=== PATIENT | female | born 1930 | race Caucasian/White ===

== ENCOUNTER 2018-03-17 19:36 | Emergency (ER) | payer OTHER ==
[2018-03-17 20:38] LABS: ALT/SGPT 27 U/L (12-78); AST/SGOT 24 U/L (15-37); Albumin 3.7 g/dL (3.4-5.0); Alkaline Phosphatase 74 U/L (45-117); Amylase Level 35 U/L (25-115); BUN Blood Urea Nitrogen 25 mg/dL (7-18); Bicarbonate 29 mmol/L (21-32); Bilirubin Direct < 0.1 mg/dL (0-0.2); Bilirubin Total 0.2 mg/dL (0.2-1.0); CKMB Creatine Kinase MB < 1.0 ng/mL (0.3-3.6); Creatine Phosphokinase 52 U/L (26-192); Glucose Level 155 mg/dL (74-106); Lipase 74 U/L (73-393); Magnesium 2.1 mg/dL (1.8-2.4); Potassium 4.4 mmol/L (3.5-5.1); Protein, Total 7.6 g/dL (6.4-8.2); Sodium Level 141 mmol/L (136-145)
[2018-03-17 20:44] LABS: Absolute Lymphocytes (CBC) 2.6 K/uL (0.7-4.9); Absolute Monocytes 0.9 K/uL (0.1-1.3); Absolute Neutrophil 5.5 K/uL (1.8-8.0); Basophils % 0.8 % (0-1.3); Eosinophils % 4.4 % (0-4.4); Hematocrit 43.1 % (36.0-45.0); Lymphocytes % 27.7 % (15.3-44.8); MCH 31.7 pg (27.0-35.0); MCV 94.7 fL (80-100); MPV 8.2 fL (7.6-11.3); Monocytes % 9.7 % (3.3-12.3); RBC Red Blood Cell Count 4.55 M/uL (3.86-4.86)
[2018-03-17 20:47] LABS: Protime INR 0.97
--- NOTE | 2018-03-17 21:05 | RAD REPORT ---
EXAM DESCRIPTION: CT - Ct Stroke Brain Wo Cont - 03/17/2018 8:06 pm CLINICAL HISTORY: Transient alteration of awareness CLINICAL HISTORY: CT head March 2012 TECHNIQUE: Axial 5 millimeter thick images of the head were obtained without IV contrast. All CT scans are performed using dose optimization technique as appropriate and may include automated exposure control or mA/KV adjustment according to patient size. FINDINGS: No intracranial hemorrhage, mass, or cerebral edema. No acute cortical based infarction. N o cortical edema or sulcal effacement. Moderate atrophy and chronic ischemic changes are present. The re has been mild progression since 2011. No extra-axial fluid collections. Rubio matter-white matter differentiation is preserved. Ventricular size is in proportion to volume loss. Arterial and physiologic calcifications are present . Mastoid air cells are clear. Chronic left maxillary sinusitis is present with complete opacification. This is new from 2011. Findings telephoned to the Dr. Davila 8:17 p.m. IMPRESSION: No hemorrhage, mass or acute intracranial finding. Moderate atrophy and chronic ischemic change showing mild progression since 2011. Chronic ischemic changes can mask nonhemorrhagic acute infarction. MR brain followup can be obtained if there is ongoing concern for acute ischemia. Left maxillary chronic sinusitis
--- NOTE | 2018-03-17 21:06 | RAD REPORT ---
EXAM DESCRIPTION: RAD - Chest Single View - 03/17/2018 8:14 pm CLINICAL HISTORY: Stroke protocol chest film, altered mental status COMPARISON: November 2014 TECHNIQUE: AP portable chest image was obtained 2001 hours . FINDINGS: Lung volumes are low. Right hemidiaphragm elevation is present. Vasculature within normal limits. No focal lung parenchymal process seen. Heart and vasculature are normal. No measurable pleur al effusion and no pneumothorax. No gross bony abnormality seen. No acute aortic findings suspected. IMPRESSION: No acute cardiopulmonary process. No significant change from comparison.
[2018-03-17] MEDS ORDERED: NA CHLORIDE 0.9% 500 ML ONE (22:20)
[2018-03-17 23:56] LABS: Urine Blood NEGATIVE (NEG); Urine Glucose NEGATIVE (NEG); Urine Protein NEGATIVE (NEG); Urine pH 5.5 (5.0-7.0)
[2018-03-17 23:59] LABS: Urine Bacteria <20 /HPF (<20); Urine Culture Reflex Order REFLEXED; Urine RBC NONE SEEN /HPF (NONE SEEN)
[2018-03-18] LABS: Urine Mucus LIGHT /HPF (NONE SEEN)
--- NOTE | 2018-03-18 00:04 | EDPHYS ---
Physician Documentation [facility] Name: Crystal Padron Age: 87 yrs Sex: Female : 1930 Arrival Date: 03/17/2018 Time: 19:37 Bed 4 Private MD: ED Physician Daniel Davila HPI: 03/17 21:28 This 87 yrs old Female presents to ER via Wheelchair with complaints of wa Probable Seizure. 21:28 The patient presents with confusion, disorientation, trouble concentrating, per family, wa pt became suddenly forgetful and disoriented. could not remember her address or names of people. lasted about 30 min. resolved in route to the ER. h/o same 6 months ago. evaluated by a neurologist. dx'd with atypical Seizure. pt in ED denies complaints. Denies VICENTE, dizziness, chest pain or SOB. Does not remember details of what happened. Family denies noting seizure activity. They however describe pt pulling on her lower lip with her hands when during episode. did not observe any facial or extremity weakness during episode. Onset: The symptoms/episode began/occurred just prior to arrival. Possible causes: unknown. Associated signs and symptoms: Pertinent positives: confusion, Pertinent negatives: agitation, blurred vision, chest pain, diaphoresis, dizziness, headache, lightheadedness, nausea, numbness, palpitations, seizure, shortness of breath, tingling, vomiting, weakness. Current symptoms: In the emergency department the patient's symptoms have resolved, the patient is alert and fully oriented, has normal speech, has normal responsiveness, has no confusion. Patient's baseline: Neuro: alert and fully oriented, Motor: no deficits, Ambulation: walks without assistance, Speech: normal. The patient has experienced a previous episode, approximately 6 months ago. The patient has not recently seen a physician. Historical: - Allergies: 19:51 tolmetin; ea - Home Meds: 20:28 alphagan [Active]; levothyroxine 112 mcg tab 1 tab once daily [Active]; diclofenac tl2 sodium 50 mg oral TbEC 1 tab [Active]; metoprolol tartrate 25 mg Oral tab 1 tab once daily [Active]; montelukast 10 mg oral tab 1 tab once daily [Active]; duloxetine 30 mg oral cpDR 1 cap once daily [Active]; amitriptyline 10 mg Oral tab 1 tab [Active]; aspirin 81 mg Oral TbEC 1 tab once daily [Active]; Advair Diskus 250-50 mcg/dose Inhl dsdv 1 puff 2 times per day [Active]; tramadol 50 mg Oral tab 1 tab every 4-6 hours [Active]; vitamin B complex oral cap [Active]; melatonin 3 mg Oral tab nightly [Active]; albuterol sulfate 2.5 mg /3 mL (0.083 %) Inhl nebu 3 mL every 8 hours [Active]; - PMHx: 20:30 Hypothyroidism; Hypertension; Seizures; tl2 - PSHx: 19:51 Cholecystectomy; Tonsillectomy; Appendectomy; Hysterectomy; Disc surgery; bilateral ea knee replacement; left hip replacement; - Immunization history:: Adult Immunizations up to date, Adult Immunizations up to date. - Social history:: Smoking status: Patient/guardian denies using tobacco, Smoking status: Patient/guardian denies using tobacco. - Ebola Screening: : Patient negative for fever greater than or equal to 101.5 degrees Fahrenheit, and additional compatible Ebola Virus Disease symptoms Patient denies exposure to infectious person Patient denies travel to an Ebola-affected area in the 21 days before illness onset No symptoms or risks identified at this time No symptoms or risks identified at this time. - Family history:: not pertinent. - Hospitalizations: : No recent hospitalization is reported. ROS: 21:34 Constitutional: Negative for fever, chills, and weight loss, Eyes: Negative for injury, wa pain, redness, and discharge, ENT: Negative for injury, pain, and discharge, Neck: Negative for injury, pain, and swelling, Cardiovascular: Negative for chest pain, palpitations, and edema, Respiratory: Negative for shortness of breath, cough, wheezing, and pleuritic chest pain, Abdomen/GI: Negative for abdominal pain, nausea, vomiting, diarrhea, and constipation, Back: Negative for injury and pain, : Negative for injury, bleeding, discharge, and swelling, MS/Extremity: Negative for injury and deformity, Skin: Negative for injury, rash, and discoloration, Psych: Negative for depression, anxiety, suicide ideation, homicidal ideation, and hallucinations. 21:34 Neuro: Positive for altered mental status, Negative for dizziness, gait disturbance, headache, loss of consciousness, seizure activity, speech changes, syncope. 21:34 All other systems are negative. Exam: 21:34 Constitutional: This is a well developed, well nourished patient who is awake, alert, wa and in no acute distress. Head/Face: Normocephalic, atraumatic. Eyes: Pupils equal round and reactive to light, extra-ocular motions intact. Lids and lashes normal. Conjunctiva and sclera are non-icteric and not injected. Cornea within normal limits. Periorbital areas with no swelling, redness, or edema. ENT: Nares patent. No nasal discharge, no septal abnormalities noted. Tympanic membranes are normal and external auditory canals are clear. Oropharynx with no redness, swelling, or masses, exudates, or evidence of obstruction, uvula midline. Mucous membranes moist. Neck: Trachea midline, no thyromegaly or masses palpated, and no cervical lymphadenopathy. Supple, full range of motion without nuchal rigidity, or vertebral point tenderness. No Meningismus. Cardiovascular: Regular rate and rhythm with a normal S1 and S2. No gallops, murmurs, or rubs. Normal PMI, no JVD. No pulse deficits. Respiratory: Lungs have equal breath sounds bilaterally, clear to auscultation and percussion. No rales, rhonchi or wheezes noted. No increased work of breathing, no retractions or nasal flaring. Abdomen/GI: Soft, non-tender, with normal bowel sounds. No distension or tympany. No guarding or rebound. No evidence of tenderness throughout. Back: No spinal tenderness. No costovertebral tenderness. Full range of motion. Skin: Warm, dry with normal turgor. Normal color with no rashes, no lesions, and no evidence of cellulitis. MS/ Extremity: Pulses equal, no cyanosis. Neurovascular intact. Full, normal range of motion. Psych: Awake, alert, with orientation to person, place and time. Behavior, mood, and affect are within normal limits. 21:34 Neuro: Orientation: is normal, Mentation: is normal, Memory: is normal, Cranial nerves: grossly normal, Cerebellar function: is grossly normal, Motor: is normal, Sensation: is normal. Vital Signs: 19:51 BP 156 / 86; Pulse 85; Resp 18; Pulse Ox 95% on R/A; Weight 90.72 kg; Height 5 ft. 4 bp in. (162.56 cm); 20:51 BP 103 / 84; Pulse 73; Resp 20; Pulse Ox 94% on R/A; tl2 21:37 BP 122 / 68; Pulse 70; Resp 18; Pulse Ox 95% on R/A; tl2 22:38 BP 140 / 70; Pulse 64; Resp 18; Pulse Ox 96% on R/A; tl2 23:17 BP 138 / 90; Pulse 67; Resp 18; Pulse Ox 95% on R/A; tl2 19:51 Body Mass Index 34.33 (90.72 kg, 162.56 cm) bp NIH Stroke Scale Scores: 19:46 NIHSS Score: 0 bp Olga Coma Score: 19:49 Eye Response: spontaneous(4). Verbal Response: oriented(5). Motor Response: obeys bp commands(6). Total: 15. MDM: 20:09 Patient medically screened. fl 21:35 Differential Diagnosis: s/o transient episode of confusion and difficulty remembering wa things. r/o TIA. consider onset of dementia. Delirium? atypical Seizure?. 21:45 Data reviewed: vital signs, nurses notes. Test interpretation: by ED physician or fl midlevel provider: EKG: HR 79. low voltage. no obvious ischemic changes. 03/18 00:02 Response to treatment: the patient's symptoms have resolved after treatment. fl 00:08 Test interpretation: by ED physician or midlevel provider: UA noted for 20-50 HPF wbc. fl 03/17 19:54 Order name: Amylase, Serum; Complete Time: 21:26 bp 03/17 19:54 Order name: Ckmb; Complete Time: 21:26 bp 03/17 19:54 Order name: CPK; Complete Time: 21:26 bp 03/17 19:54 Order name: Hepatic Function; Complete Time: 21:26 bp 03/17 19:54 Order name: Lipase; Complete Time: 21:26 bp 03/17 19:54 Order name: Magnesium; Complete Time: 21:26 bp 03/17 19:54 Order name: Troponin (emerg Dept Use Only); Complete Time: 21:26 bp 03/17 19:54 Order name: Basic Metabolic Panel; Complete Time: 21:26 bp 03/17 19:54 Order name: CBC with Diff; Complete Time: 21:26 bp 03/17 19:54 Order name: Protime (+inr); Complete Time: 21:26 bp 03/17 19:54 Order name: Ptt, Activated; Complete Time: 21:26 bp 03/17 19:54 Order name: Urine Microscopic Only bp 03/17 23:45 Order name: Urine Dipstick--Ancillary (enter results); Complete Time: 00:00 rg2 03/18 00:02 Order name: Urine Culture EDMS 03/17 19:54 Order name: CT Stroke Brain w/o Contrast; Complete Time: 21:26 bp 03/17 19:54 Order name: Stroke CXR 1 View; Complete Time: 21:27 bp 03/17 19:54 Order name: EKG; Complete Time: 19:55 bp 03/17 19:54 Order name: Accucheck; Complete Time: 20:06 bp 03/17 19:54 Order name: Cardiac monitoring; Complete Time: 20:06 bp 03/17 19:54 Order name: EKG - Nurse/Tech; Complete Time: 20:06 bp 03/17 19:54 Order name: IV Saline Lock; Complete Time: 20:06 bp 03/17 19:54 Order name: Labs collected and sent; Complete Time: 20:06 bp 03/17 19:54 Order name: NPO; Complete Time: 20:06 bp 03/17 19:54 Order name: O2 Per Protocol; Complete Time: 20:06 bp 03/17 19:54 Order name: O2 Sat Monitoring; Complete Time: 20:06 bp 03/17 19:54 Order name: Stroke Swallow Screen; Complete Time: 20:21 bp 03/17 19:54 Order name: Urine Dipstick-Ancillary (obtain specimen); Complete Time: 20:06 bp Administered Medications: 03/17 22:20 Drug: NS 0.9% 500 ml Route: IV; Rate: bolus; Site: right antecubital; bp 03/18 00:10 Follow up: IV Status: Completed infusion; IV Intake: 500ml bp Point of Care Testing: Blood Glucose: 03/17 19:50 Blood Glucose: 161 mg/dL; bp Ranges: Critical Glucose Levels:Adult <50 mg/dl or >400 mg/dl <40 mg/dl or >180 mg/dl Disposition: 03/18/18 00:03 Discharged to Home. Impression: Transient Confusion, Transient memory Loss, Acute UTI. - Condition is Stable. - Prescriptions for Keflex 500 mg Oral Capsule - take 1 capsule by ORAL route every 12 hours for 5 days; 10 capsule. - Medication Reconciliation Form, Thank You Letter, Antibiotic Education, Prescription Opioid Use form. - Follow up: Mehran Gonzales MD; When: 1 - 2 days; Reason: Re-evaluation by your physician. - Problem is new. - Symptoms have improved. - Notes: please follow up with the neurologist as discussed. return to ER for any worrisome concerns NIH Stroke Scale - NIH Stroke Score Date: 03/17/2018 Time: 19:46 Total Score = 0 1a. Level of Consciousness (LOC) - 0(Alert) 1b. Level of Consciousness (LOC) (Year \T\ Age) - 0(Both) 1c. LOC Commands (Open \T\ Closes Eyes/Chassis Wirer) - 0(Both) 2. Best Gaze (Lateral Gaze Paresis) - 0(Normal) 3. Visual Field Loss - 0(No visual loss) 4. Facial Palsy - 0(Normal) 5a. Left Arm: Motor (10-second hold) - 0(No drift) 5b. Right Arm: Motor (10-second hold) - 0(No drift) 6a. Left Leg: Motor (5-second hold - always test supine) - 0(No drift) 6b. Right Leg: Motor (5-second hold - always test supine) - 0(No drift) 7. Limb Ataxia (finger/nose \T\ heel/jackson - test with eyes open) - 0(Absent) 8. Sensory Loss (pinprick arms/legs/face) - 0(Normal) 9. Best Language: Aphasia (description/naming/reading) - 0(No aphasia) 10. Dysarthria (speech clarity - read or repeat words) - 0(Normal) 11. Extinction and Inattention (visual/tactile/auditory/spatial/personal) - 0(No abnormality) Initials: bp Signatures: Dispatcher [employer] [facility] Vida Acosta RN RN tl2 Leticia Pinto RN RN ea Appiah, William, MD MD wa Peltier, Brian, RN RN bp Corrections: (The following items were deleted from the chart) 21:16 21:09 Chest Single View+[email or web address] ordered. [facility] 03/18 00:10 00:03 03/18/2018 00:03 Discharged to Home. Impression: Transient Confusion; wa Transient memory Loss. Condition is Stable. Forms are Medication Reconciliation Form, Thank You Letter, Antibiotic Education, Prescription Opioid Use. Follow up: Mehran Gonzales; When: 1 - 2 days; Reason: Re-evaluation by your physician. Problem is new. Symptoms have improved. wa 00:17 00:10 03/18/2018 00:03 Discharged to Home. Impression: Transient Confusion; bp Transient memory Loss; Acute UTI. Condition is Stable. Prescriptions for Keflex 500 mg Oral Capsule - take 1 capsule by ORAL route every 12 hours for 5 days; 10 capsule. and Forms are Medication Reconciliation Form, Thank You Letter, Antibiotic Education, Prescription Opioid Use. Follow up: Mehran Gonzales; When: 1 - 2 days; Reason: Re-evaluation by your physician. Problem is new. Symptoms have improved. wa
--- NOTE | 2018-03-18 00:04 | ER ---
Nurse's Notes [facility] Name: Crystal Padron Age: 87 yrs Sex: Female : 1930 Arrival Date: 03/17/2018 Time: 19:37 Bed 4 Private MD: Diagnosis: Transient Confusion;Transient memory Loss;Acute UTI Presentation: 03/17 19:46 Presenting complaint: Daughter in law reports she became confused about 30 to 45 ea minutes ago and did not know her name or address. Pt reports she remembers being confused. Denies weakness and slurred speech. Transition of care: patient was not received from another setting of care. No acute neurological deficit is noted. Onset of symptoms was March 17, 2018. Risk Assessment: Do you want to hurt yourself or someone else? Patient reports no desire to harm self or others. Initial Sepsis Screen: Does the patient meet any 2 criteria? No. Patient's initial sepsis screen is negative. Does the patient have a suspected source of infection? No. Patient's initial sepsis screen is negative. Care prior to arrival: None. 19:46 Method Of Arrival: Wheelchair ea 19:46 Acuity: NICHO 3 ea Triage Assessment: 19:49 The onset of the patients symptoms was March 17, 2018 at 19:00. General: Appears in no bp apparent distress. comfortable, obese, Behavior is calm, cooperative, appropriate for age, NO CURRENT ACUTE S/S. Historical: - Allergies: 19:51 tolmetin; ea - Home Meds: 20:28 alphagan [Active]; levothyroxine 112 mcg tab 1 tab once daily [Active]; diclofenac tl2 sodium 50 mg oral TbEC 1 tab [Active]; metoprolol tartrate 25 mg Oral tab 1 tab once daily [Active]; montelukast 10 mg oral tab 1 tab once daily [Active]; duloxetine 30 mg oral cpDR 1 cap once daily [Active]; amitriptyline 10 mg Oral tab 1 tab [Active]; aspirin 81 mg Oral TbEC 1 tab once daily [Active]; Advair Diskus 250-50 mcg/dose Inhl dsdv 1 puff 2 times per day [Active]; tramadol 50 mg Oral tab 1 tab every 4-6 hours [Active]; vitamin B complex oral cap [Active]; melatonin 3 mg Oral tab nightly [Active]; albuterol sulfate 2.5 mg /3 mL (0.083 %) Inhl nebu 3 mL every 8 hours [Active]; - PMHx: 20:30 Hypothyroidism; Hypertension; Seizures; tl2 - PSHx: 19:51 Cholecystectomy; Tonsillectomy; Appendectomy; Hysterectomy; Disc surgery; bilateral ea knee replacement; left hip replacement; - Immunization history:: Adult Immunizations up to date, Adult Immunizations up to date. - Social history:: Smoking status: Patient/guardian denies using tobacco, Smoking status: Patient/guardian denies using tobacco. - Ebola Screening: : Patient negative for fever greater than or equal to 101.5 degrees Fahrenheit, and additional compatible Ebola Virus Disease symptoms Patient denies exposure to infectious person Patient denies travel to an Ebola-affected area in the 21 days before illness onset No symptoms or risks identified at this time No symptoms or risks identified at this time. - Family history:: not pertinent. - Hospitalizations: : No recent hospitalization is reported. Screenin:20 Abuse screen: Denies threats or abuse. Denies injuries from another. Nutritional bp screening: No deficits noted. Tuberculosis screening: No symptoms or risk factors identified. Fall Risk No fall in past 12 months (0 pts). No secondary diagnosis (0 pts). IV access (20 points). Ambulatory Aid- None/Bed Rest/Nurse Assist (0 pts). Gait- Normal/Bed Rest/Wheelchair (0 pts) Mental Status- Oriented to own ability (0 pts). Total Tobar Fall Scale indicates No Risk (0-24 pts). Assessment: 19:46 The patient has not been NPO before screening. The patient is alert, and able to follow bp commands. The patient does not exhibit slurred or garbled speech. The patient is not exhibiting difficulty speaking. The patient does not exhibit difficulty understanding words. The patient is able to swallow own secretions with no drooling or need for suction. Patient tolerated one teaspoon of water. No drooling, immediate coughing, gurgling, or clearing of the throat was noted. The patient tolerated 90mL of water. No drooling, immediate coughing, gurgling, or clearing of the throat was noted. The patient passed the bedside swallow screening. Oral medications may be given as ordered. Contact Physician for further diet orders. T-PA (Activase) Screening: Contraindications: Rapidly improving condition or minor deficit: Yes. General: Appears in no apparent distress. comfortable, obese, Behavior is calm, cooperative, appropriate for age. General: 87YO WF P/W MOMENTARY CONFUSION/AMS AT HOME, PER FAMILY. H/O SZ. NO CURRENT ACUTE S/S, NEURO INTACT. Pain: Denies pain. Neuro: Level of Consciousness is awake, alert, obeys commands, Oriented to person, place, time, situation, Appropriate for age Provider Relations Specialist are equal bilaterally Moves all extremities. Full function Gait is steady, Speech is normal, Facial symmetry appears normal, Pupils are PERRLA, Intact. Cardiovascular: Rhythm is sinus rhythm. Respiratory: Airway is patent Respiratory effort is even, unlabored, Respiratory pattern is regular, symmetrical. GI: No signs and/or symptoms were reported involving the gastrointestinal system. : No signs and/or symptoms were reported regarding the genitourinary system. EENT: No deficits noted. Derm: No deficits noted. Musculoskeletal: Circulation, motion, and sensation intact. Range of motion: intact in all extremities. 20:51 Reassessment: Patient appears in no apparent distress at this time. Patient and/or tl2 family updated on plan of care and expected duration. Pain level reassessed. Patient is alert, oriented x 3, equal unlabored respirations, skin warm/dry/pink. 21:39 Reassessment: PT OUT OF BED AMBULATORY TO BATHROOM, REMAINS NEURO INTACT, GCS 15. bp 23:18 Reassessment: Patient appears in no apparent distress at this time. Patient and/or tl2 family updated on plan of care and expected duration. Pain level reassessed. Patient is alert, oriented x 3, equal unlabored respirations, skin warm/dry/pink. 03/18 00:15 Reassessment: PT D/C HOME WITH FAMILY, DX WITH ACUTE UTI. bp Vital Signs: 03/17 19:51 BP 156 / 86; Pulse 85; Resp 18; Pulse Ox 95% on R/A; Weight 90.72 kg; Height 5 ft. 4 bp in. (162.56 cm); 20:51 BP 103 / 84; Pulse 73; Resp 20; Pulse Ox 94% on R/A; tl2 21:37 BP 122 / 68; Pulse 70; Resp 18; Pulse Ox 95% on R/A; tl2 22:38 BP 140 / 70; Pulse 64; Resp 18; Pulse Ox 96% on R/A; tl2 23:17 BP 138 / 90; Pulse 67; Resp 18; Pulse Ox 95% on R/A; tl2 19:51 Body Mass Index 34.33 (90.72 kg, 162.56 cm) bp [place] Coma Score: 19:49 Eye Response: spontaneous(4). Verbal Response: oriented(5). Motor Response: obeys bp commands(6). Total: 15. NIH Stroke Scale Scores: 19:46 NIHSS Score: 0 bp ED Course: 19:37 Patient arrived in ED. am2 19:39 Nacho Anne, RN is Primary Nurse. bp 19:48 Triage completed. ea 19:50 Initial lab(s) drawn, by me, sent to lab. Inserted saline lock: 22 gauge in right cc antecubital area, using aseptic technique. Blood collected. 19:51 Arm band placed on right wrist. Patient placed in an exam room, on a stretcher, on ea monitoring specialist, on pulse oximetry. 20:00 Seizure precautions initiated. bp 20:00 EKG done, by ED staff. cc 20:06 CT Stroke Brain w/o Contrast In Process Unspecified. EDMS 20:09 Daniel Davila MD is Attending Physician. wa 20:12 X-ray completed. Portable x-ray completed in exam room. Patient tolerated procedure bb2 well. 20:13 Stroke CXR 1 View In Process Unspecified. EDMS 22:39 Patient has correct armband on for positive identification. Placed in gown. Bed in low tl2 position. Call light in reach. Side rails up X2. Adult w/ patient. 03/18 00:03 Mehran Gonzales MD is Referral Physician. wa 00:10 No provider procedures requiring assistance completed. IV discontinued, intact, bp bleeding controlled, No redness/swelling at site. Pressure dressing applied. Administered Medications: 03/17 22:20 Drug: NS 0.9% 500 ml Route: IV; Rate: bolus; Site: right antecubital; bp 03/18 00:10 Follow up: IV Status: Completed infusion; IV Intake: 500ml bp Point of Care Testing: Blood Glucose: 03/17 19:50 Blood Glucose: 161 mg/dL; bp Ranges: Intake: 03/18 00:10 IV: 500ml; Total: 500ml. bp Outcome: 00:03 Discharge ordered by . jamir 00:16 Discharged to home via wheelchair, with family. bp 00:16 Condition: stable 00:16 Discharge instructions given to patient, family, Instructed on discharge instructions, follow up and referral plans. medication usage, Demonstrated understanding of instructions, follow-up care, medications, Prescriptions given X 1. 00:17 Patient left the ED. bp NIH Stroke Scale - NIH Stroke Score Date: 03/17/2018 Time: 19:46 Total Score = 0 1a. Level of Consciousness (LOC) - 0(Alert) 1b. Level of Consciousness (LOC) (Year \T\ Age) - 0(Both) 1c. LOC Commands (Open \T\ Closes Eyes/Professor Of Biology) - 0(Both) 2. Best Gaze (Lateral Gaze Paresis) - 0(Normal) 3. Visual Field Loss - 0(No visual loss) 4. Facial Palsy - 0(Normal) 5a. Left Arm: Motor (10-second hold) - 0(No drift) 5b. Right Arm: Motor (10-second hold) - 0(No drift) 6a. Left Leg: Motor (5-second hold - always test supine) - 0(No drift) 6b. Right Leg: Motor (5-second hold - always test supine) - 0(No drift) 7. Limb Ataxia (finger/nose \T\ heel/jackson - test with eyes open) - 0(Absent) 8. Sensory Loss (pinprick arms/legs/face) - 0(Normal) 9. Best Language: Aphasia (description/naming/reading) - 0(No aphasia) 10. Dysarthria (speech clarity - read or repeat words) - 0(Normal) 11. Extinction and Inattention (visual/tactile/auditory/spatial/personal) - 0(No abnormality) Initials: bp Signatures: Dispatcher [employer] EDMS Chika Freeman Taylor, RN RN tl2 Helen Flynn am2 Leticia Pinto RN RN ea Appiah, William, MD MD wa Peltier, Brian RN RN Macarena Posadas2 Corrections: (The following items were deleted from the chart) 03/17 19:52 19:51 90.72 kg; Height 5 ft. 4 in.; BMI: 34.3; ea ea 20:21 19:51 Pulse 85bpm; Resp 18bpm; Pulse Ox 95% RA; 90.72 kg; Height 5 ft. 4 in.; bp BMI: 34.3; ea
[2018-03-18 00:55] VITALS: BP 138/90; O2SAT 95
--- NOTE | 2018-03-18 08:17 | EKG ---
Test Date: 2018-03-17 Test Time: 19:57:17 Barrel Drainer: KEN MEASUREMENT RESULTS: Intervals: Rate: 79 HI: 186 QRSD: 84 QT: 362 QTc: 415 [place]: P: 26 HI: 186 QRS: -22 T: 42 INTERPRETIVE STATEMENTS: Normal sinus rhythm Low voltage QRS Cannot rule out Anterior infarct, age undetermined Abnormal ECG Compared to ECG 12/30/2013 14:11:12 Low QRS voltage now present Myocardial infarct finding still present Electronically Signed On 03-18-18 08:16:22 CDT by Rory Valero
== END 2018-03-18 00:17 | disposition home or self-care (01) ==
LOC: ER 19:36
DX: N39.0 Urinary tract infection, site not specified (principal); R40.4 Transient alteration of awareness; G45.4 Transient global amnesia; I10 Essential (primary) hypertension; G40.909 Epilepsy, unspecified, not intractable, without status epilepticus; E03.9 Hypothyroidism, unspecified; Z88.8 Allergy status to other drugs, medicaments and biological substances
CPT/HCPCS: 36415; 70450; 71045; 80048; 80076; 81003; 81015; 82150; 82550; 82553; 82962; 83690; 83735; 84484; 85025; 85610; 85730; 87086; 87088; 93005; 96360; 96361; 99285

== ENCOUNTER 2018-03-24 13:33 | Observation (INO) | payer OTHER ==
--- NOTE | 2018-03-24 14:17 | EDPHYS ---
Physician Documentation [facility] Name: Crystal Padron Age: 87 yrs Sex: Female : 1930 Arrival Date: 03/24/2018 Time: 13:34 Bed 25 Private MD: Arminda Mckeon C ED Physician Juan M Tomas HPI: 03/24 14:11 This 87 yrs old Female presents to ER via Wheelchair with complaints of yadira Abdominal Pain. 14:11 The patient presents with abdominal pain in the lower abdomen, in the left lower yadira quadrant. Onset: The symptoms/episode began/occurred 3 day(s) ago. The symptoms do not radiate. Associated signs and symptoms: none. The symptoms are described as constant, crampy. Modifying factors: The symptoms are alleviated by remaining still, the symptoms are aggravated by touching the area. Severity of pain: At its worst the pain was mild moderate in the emergency department the pain has improved mildly. The patient has experienced similar episodes in the past, a few times. Historical: - Allergies: 13:47 tolectin; aj1 - Home Meds: 13:47 Advair Diskus 250-50 mcg/dose Inhl dsdv 1 puff 2 times per day [Active]; albuterol aj1 sulfate 2.5 mg /3 mL (0.083 %) Inhl nebu 3 mL every 8 hours [Active]; alphagan [Active]; amitriptyline 10 mg Oral tab 1 tab [Active]; aspirin 81 mg Oral TbEC 1 tab once daily [Active]; diclofenac sodium 50 mg Oral TbEC 1 tab [Active]; duloxetine 30 mg Oral cpDR 1 cap once daily [Active]; levothyroxine 112 mcg tab 1 tab once daily [Active]; melatonin 3 mg Oral tab nightly [Active]; metoprolol tartrate 25 mg Oral tab 1 tab once daily [Active]; montelukast 10 mg Oral tab 1 tab once daily [Active]; tramadol 50 mg Oral tab 1 tab every 4-6 hours [Active]; vitamin B complex Oral cap [Active]; - PMHx: 13:47 Hypertension; Hypothyroidism; Seizures; Diverticulitis; aj1 - PSHx: 13:47 Cholecystectomy; Hysterectomy; Tonsillectomy; Appendectomy; Knee surgery; hip aj1 replacement; plates and screws in back; carpal tunnel repair; - Immunization history:: Flu vaccine is up to date. - Social history:: Smoking status: Patient/guardian denies using tobacco. - Ebola Screening: : Patient denies travel to an Ebola-affected area in the 21 days before illness onset. - Family history:: not pertinent. ROS: 14:11 Constitutional: Negative for fever, chills, and weight loss, Eyes: Negative for injury, yadira pain, redness, and discharge, ENT: Negative for injury, pain, and discharge, Neck: Negative for injury, pain, and swelling, Cardiovascular: Negative for chest pain, palpitations, and edema, Respiratory: Negative for shortness of breath, cough, wheezing, and pleuritic chest pain, Back: Negative for injury and pain, : Negative for injury, bleeding, discharge, and swelling, MS/Extremity: Negative for injury and deformity, Skin: Negative for injury, rash, and discoloration, Neuro: Negative for headache, weakness, numbness, tingling, and seizure, Psych: Negative for depression, anxiety, suicide ideation, homicidal ideation, and hallucinations, Allergy/Immunology: Negative for hives, rash, and allergies, Endocrine: Negative for neck swelling, polydipsia, polyuria, polyphagia, and marked weight changes, Hematologic/Lymphatic: Negative for swollen nodes, abnormal bleeding, and unusual bruising. 14:11 Abdomen/GI: Positive for abdominal pain, abdominal cramps, of the left lower quadrant. Exam: 14:11 Constitutional: This is a well developed, well nourished patient who is awake, alert, yadira and in no acute distress. Head/Face: Normocephalic, atraumatic. Eyes: Pupils equal round and reactive to light, extra-ocular motions intact. Lids and lashes normal. Conjunctiva and sclera are non-icteric and not injected. Cornea within normal limits. Periorbital areas with no swelling, redness, or edema. ENT: Nares patent. No nasal discharge, no septal abnormalities noted. Tympanic membranes are normal and external auditory canals are clear. Oropharynx with no redness, swelling, or masses, exudates, or evidence of obstruction, uvula midline. Mucous membranes moist. Neck: Trachea midline, no thyromegaly or masses palpated, and no cervical lymphadenopathy. Supple, full range of motion without nuchal rigidity, or vertebral point tenderness. No Meningismus. Chest/axilla: Normal chest wall appearance and motion. Nontender with no deformity. No lesions are appreciated. Cardiovascular: Regular rate and rhythm with a normal S1 and S2. No gallops, murmurs, or rubs. Normal PMI, no JVD. No pulse deficits. Respiratory: Lungs have equal breath sounds bilaterally, clear to auscultation and percussion. No rales, rhonchi or wheezes noted. No increased work of breathing, no retractions or nasal flaring. Back: No spinal tenderness. No costovertebral tenderness. Full range of motion. Female : Normal external genitalia. Skin: Warm, dry with normal turgor. Normal color with no rashes, no lesions, and no evidence of cellulitis. MS/ Extremity: Pulses equal, no cyanosis. Neurovascular intact. Full, normal range of motion. Neuro: Awake and alert, GCS 15, oriented to person, place, time, and situation. Cranial nerves II-XII grossly intact. Motor strength 5/5 in all extremities. Sensory grossly intact. Cerebellar exam normal. Normal gait. Psych: Awake, alert, with orientation to person, place and time. Behavior, mood, and affect are within normal limits. 14:11 Abdomen/GI: Inspection: abdomen appears normal, Bowel sounds: normal, Palpation: mild abdominal tenderness, moderate abdominal tenderness, in the left lower quadrant. Vital Signs: 13:47 BP 123 / 70; Pulse 95; Resp 18; Temp 99.0(TE); Pulse Ox 94% on R/A; Weight 90.72 kg [facility] (R); Height 5 ft. 3 in. (160.02 cm) (R); Pain 3/10; 16:00 BP 133 / 90; Pulse 76; Resp 17; Pulse Ox 97% on R/A; mb3 17:00 BP 141 / 63; Pulse 73; Resp 17; Pulse Ox 96% on R/A; mb3 17:54 BP 132 / 62; Pulse 69; Resp 16; Pulse Ox 98% on R/A; mb3 18:57 BP 129 / 61; Pulse 68; Resp 17; Pulse Ox 96% on R/A; mb3 13:47 Body Mass Index 35.43 (90.72 kg, 160.02 cm) [facility] MDM: 14:00 Patient medically screened. [facility] 16:21 Data reviewed: vital signs, nurses notes, lab test result(s), EKG, radiologic studies, [facility] CT scan, plain films. 03/24 14:09 Order name: Basic Metabolic Panel [facility] 03/24 14:09 Order name: CBC with Diff [facility] 03/24 14:09 Order name: Ckmb [facility] 03/24 14:09 Order name: CPK [facility] 03/24 14:09 Order name: LFT's; Complete Time: 16:20 [facility] 03/24 14:09 Order name: Magnesium; Complete Time: 16:20 [facility] 03/24 14:09 Order name: NT PRO-BNP; Complete Time: 16:20 [facility] 03/24 14:09 Order name: PT-INR; Complete Time: 16:20 [facility] 03/24 14:09 Order name: Ptt, Activated; Complete Time: 16:20 [facility] 03/24 14:09 Order name: Troponin (emerg Dept Use Only); Complete Time: 16:34 [facility] 03/24 14:09 Order name: Lipase; Complete Time: 16:20 [facility] 03/24 14:09 Order name: Basic Metabolic Panel; Complete Time: 16:20 [facility] 03/24 14:09 Order name: CBC with Automated Diff; Complete Time: 16:34 [facility] 03/24 14:09 Order name: CKMB Creatine Kinase MB; Complete Time: 16:20 [facility] 03/24 14:09 Order name: XRAY Chest (1 view) [facility] 03/24 14:09 Order name: CT Abd/Pelvis - W/Contrast [facility] 03/24 14:09 Order name: Creatine Phosphokinase; Complete Time: 16:20 [facility] 03/24 14:11 Order name: Type And Screen; Complete Time: 16:34 [facility] 03/24 14:23 Order name: Basic Metabolic Panel [facility] 03/24 14:23 Order name: Basic Metabolic Panel [facility] 03/24 14:23 Order name: CBC with Automated Diff [facility] 03/24 14:23 Order name: CBC with Automated Diff [facility] 03/24 14:23 Order name: Lipase [facility] 03/24 14:23 Order name: Lipase [facility] 03/24 14:23 Order name: Liver (Hepatic) Function [facility] 03/24 14:23 Order name: Liver (Hepatic) Function [facility] 03/24 15:22 Order name: RAD; Complete Time: 15:40 [facility] 03/24 19:00 Order name: Urine Culture [facility] 03/24 19:55 Order name: Urine Dipstick--Ancillary (enter results) co 03/24 20:07 Order name: Urine Dipstick-Ancillary [facility] 03/24 14:09 Order name: EKG; Complete Time: 14:10 [facility] 03/24 14:09 Order name: Cardiac monitoring; Complete Time: 14:11 [facility] 03/24 14:09 Order name: EKG - Nurse/Tech; Complete Time: 15:20 [facility] 03/24 14:09 Order name: IV Saline Lock; Complete Time: 15:20 [facility] 03/24 14:09 Order name: Labs collected and sent; Complete Time: 15:20 [facility] 03/24 14:09 Order name: O2 Per Protocol; Complete Time: 14:11 [facility] 03/24 14:09 Order name: O2 Sat Monitoring; Complete Time: 14:11 [facility] 03/24 14:09 Order name: Urine Dipstick-Ancillary (obtain specimen); Complete Time: 15:20 [facility] 03/24 14:23 Order name: CONS Physician Consult [facility] 03/24 14:23 Order name: NPO; Complete Time: 14:43 [facility] 03/24 16:45 Order name: CT; Complete Time: 18:11 [facility] Administered Medications: Discontinued: Cipro 400 mg 200 ml IVPB once over 60 mins 14:38 Drug: NS 0.9% 1000 ml Route: IV; Rate: 125 ml/hr; Site: right antecubital; mb3 20:04 Follow up: Response: No adverse reaction; IV Status: Infusion continued upon admission; mb3 IV Intake: 600ml 15:19 Drug: Flagyl 500 mg Volume: 100 ml; Route: IVPB; Rate: 200 ml/hr; Infused Over: 30 mb3 mins; Site: right antecubital; 20:04 Follow up: Response: No adverse reaction; IV Status: Completed infusion; IV Intake: mb3 100ml 15:20 Drug: Cipro 400 mg Volume: 200 ml; Route: IVPB; Infused Over: 60 mins; Site: left mb3 forearm; 15:45 Drug: Benadryl 25 mg Route: IVP; Site: right antecubital; mb3 19:57 Follow up: Response: No adverse reaction mb3 17:26 Drug: Rocephin - (cefTRIAXone) 1 grams Route: IVPB; Infused Over: 30 mins; Site: left mb3 forearm; 19:58 Follow up: Response: No adverse reaction; IV Status: Completed infusion; IV Intake: mb3 100ml Disposition: 03/24/18 14:17 Hospitalization ordered by Arminda Mckeon for Observation. Preliminary diagnosis are Abdominal tenderness, Diverticular disease of intestine. - Bed requested for Telemetry/MedSurg (observation). - Status is Observation. mb3 - Condition is Fair. - Problem is new. - Symptoms have improved. UTI on Admission? No Signatures: Dispatcher [employer] EDDebra Canada, RN RN aj1 Juan M Tomas MD MD cha Therrien, Shelly, MOCK UP MAKER-C MOCK UP MAKER-Csnw Emilee Castillo Mark RN RN mb3 Corrections: (The following items were deleted from the chart) 17:20 14:17 Hospitalization Ordered by A Mike TONG for Inpatient Admission. Preliminary snw diagnosis is Abdominal tenderness; Diverticular disease of intestine. Bed requested for Telemetry/MedSurg (Inpatient). Status is Inpatient Admission. Condition is Fair. Problem is new. Symptoms have improved. UTI on Admission? No. yadira 17:34 17:20 03/24/2018 14:17 Hospitalization Ordered by A Mike TONG for Inpatient Admission. eb Preliminary diagnosis is Abdominal tenderness; Diverticular disease of intestine. Bed requested for Telemetry/MedSurg (observation). Status is Inpatient Admission. Condition is Fair. Problem is new. Symptoms have improved. UTI on Admission? No. snw 18:11 17:34 03/24/2018 14:17 Hospitalization Ordered by A Mike TONG for Inpatient Admission. yadira Preliminary diagnosis is Abdominal tenderness; Diverticular disease of intestine. Bed requested for Telemetry/MedSurg (observation). Status is Inpatient Admission. Condition is Fair. Problem is new. Symptoms have improved. UTI on Admission? No. eb 20:10 18:11 03/24/2018 14:17 Hospitalization Ordered by A Mike TONG for Observation. mb3 Preliminary diagnosis is Abdominal tenderness; Diverticular disease of intestine. Bed requested for Telemetry/MedSurg (observation). Status is Observation. Condition is Fair. Problem is new. Symptoms have improved. UTI on Admission? No. yadira
--- NOTE | 2018-03-24 14:17 | ER ---
Nurse's Notes [facility] Name: Crystal Padron Age: 87 yrs Sex: Female : 1930 Arrival Date: 03/24/2018 Time: 13:34 Bed 25 Private MD: Arminda Mckeon C Diagnosis: Abdominal tenderness;Diverticular disease of intestine Presentation: 03/24 13:43 Presenting complaint: Patient states: Lower abdominal pain for the past 2 days. Denies aj1 N/V/D. Reports constipation. States that she has a history of diverticulitis and it feels like she's a flare up. Transition of care: patient was not received from another setting of care. Onset of symptoms was March 22, 2018. Risk Assessment: Do you want to hurt yourself or someone else? Patient reports no desire to harm self or others. Initial Sepsis Screen: Does the patient meet any 2 criteria? HR > 90 bpm. No. Patient's initial sepsis screen is negative. Does the patient have a suspected source of infection? No. Patient's initial sepsis screen is negative. Care prior to arrival: None. 13:43 Method Of Arrival: Wheelchair aj1 13:43 Acuity: NICHO 3 aj1 Triage Assessment: 13:47 General: Appears in no apparent distress. comfortable, Behavior is calm, cooperative, aj1 appropriate for age. Pain: Complains of pain in right lower quadrant and left lower quadrant Pain currently is 3 out of 10 on a pain scale. at worst was 10 out of 10 on a pain scale. Pain: Quality of pain is described as stabbing, Pain began 2-3 days ago. Is intermittent. Neuro: Level of Consciousness is awake, alert, obeys commands. Cardiovascular: Patient's skin is warm and dry. Respiratory: Airway is patent Respiratory effort is even, unlabored, Respiratory pattern is regular, symmetrical. GI: Reports lower abdominal pain, Patient currently denies diarrhea, nausea, vomiting. Historical: - Allergies: 13:47 tolectin; aj1 - Home Meds: 13:47 Advair Diskus 250-50 mcg/dose Inhl dsdv 1 puff 2 times per day [Active]; albuterol aj1 sulfate 2.5 mg /3 mL (0.083 %) Inhl nebu 3 mL every 8 hours [Active]; alphagan [Active]; amitriptyline 10 mg Oral tab 1 tab [Active]; aspirin 81 mg Oral TbEC 1 tab once daily [Active]; diclofenac sodium 50 mg Oral TbEC 1 tab [Active]; duloxetine 30 mg Oral cpDR 1 cap once daily [Active]; levothyroxine 112 mcg tab 1 tab once daily [Active]; melatonin 3 mg Oral tab nightly [Active]; metoprolol tartrate 25 mg Oral tab 1 tab once daily [Active]; montelukast 10 mg Oral tab 1 tab once daily [Active]; tramadol 50 mg Oral tab 1 tab every 4-6 hours [Active]; vitamin B complex Oral cap [Active]; - PMHx: 13:47 Hypertension; Hypothyroidism; Seizures; Diverticulitis; aj1 - PSHx: 13:47 Cholecystectomy; Hysterectomy; Tonsillectomy; Appendectomy; Knee surgery; hip aj1 replacement; plates and screws in back; carpal tunnel repair; - Immunization history:: Flu vaccine is up to date. - Social history:: Smoking status: Patient/guardian denies using tobacco. - Ebola Screening: : Patient denies travel to an Ebola-affected area in the 21 days before illness onset. - Family history:: not pertinent. Screenin:02 Abuse screen: Denies threats or abuse. Nutritional screening: No deficits noted. mb3 Tuberculosis screening: No symptoms or risk factors identified. Fall Risk No fall in past 12 months (0 pts). Secondary diagnosis (15 points) IV access (20 points). Ambulatory Aid- Furniture (30 pts.). Gait- Impaired (20 pts.). Mental Status- Oriented to own ability (0 pts). Total Tobar Fall Scale indicates High Risk Score (45 or more points). Fall prevention measures have been instituted. Side Rails Up X 2 Placed Close to Nursing Station Frequent Obs/Assessments Occuring Family Present and informed to notify staff if the need to leave the bedside As available patient and family educated on Fall Prevention Program and Strategies. Assessment: 15:30 General: Appears in no apparent distress. comfortable, Behavior is calm, cooperative, mb3 appropriate for age. Pain: Complains of pain in left lower quadrant Pain does not radiate. Neuro: No deficits noted. Cardiovascular: No deficits noted. Denies chest pain, Heart tones present Capillary refill < 3 seconds Patient's skin is warm and dry. Pulses are all present. Respiratory: No deficits noted. Airway is patent Respiratory effort is even, unlabored, Respiratory pattern is regular, symmetrical. GI: Abdomen is obese, Bowel sounds present X 4 quads. Abd is soft Abdomen is tender to palpation in left lower quadrant. : No signs and/or symptoms were reported regarding the genitourinary system. : Reports incontinence. EENT: No signs and/or symptoms were reported regarding the EENT system. Derm: Bruising that is present in varying stages of healing on both arms.. Musculoskeletal: Reports pain in shoulders and back from arthritis. 17:09 Reassessment: Patient and/or family updated on plan of care and expected duration. Pain mb3 level reassessed. Patient is alert, oriented x 3, equal unlabored respirations, skin warm/dry/pink. 18:15 Reassessment: Attempted to call the 4th floor to give report. Kept getting put on hold mb3 and hung up on. No one would take report, stopped trying after 15 minutes to give report. 18:59 Reassessment: Patient and/or family updated on plan of care and expected duration. Pain mb3 level reassessed. Patient is alert, oriented x 3, equal unlabored respirations, skin warm/dry/pink. Vital Signs: 13:47 BP 123 / 70; Pulse 95; Resp 18; Temp 99.0(TE); Pulse Ox 94% on R/A; Weight 90.72 kg aj1 (R); Height 5 ft. 3 in. (160.02 cm) (R); Pain 3/10; 16:00 BP 133 / 90; Pulse 76; Resp 17; Pulse Ox 97% on R/A; mb3 17:00 BP 141 / 63; Pulse 73; Resp 17; Pulse Ox 96% on R/A; mb3 17:54 BP 132 / 62; Pulse 69; Resp 16; Pulse Ox 98% on R/A; mb3 18:57 BP 129 / 61; Pulse 68; Resp 17; Pulse Ox 96% on R/A; mb3 13:47 Body Mass Index 35.43 (90.72 kg, 160.02 cm) aj1 ED Course: 13:34 Patient arrived in ED. as 13:34 Arminda Mckeon MD is Private Physician. as 13:44 Triage completed. aj1 13:47 Arm band placed on Patient placed in an exam room. aj1 13:54 Pancho Marroquin, TOÑA is Primary Nurse. mb3 14:00 Juan M Tomas MD is Attending Physician. [facility] 14:16 Oral contrast given. il 14:16 Arminda Mckeon MD is Hospitalizing Provider. yadira 14:32 EKG done, by photocopier technician. reviewed by Juan M Tomas MD. sm3 15:01 X-ray completed. Portable x-ray completed in exam room. jr1 15:50 Inserted saline lock: 22 gauge in right antecubital area, using aseptic technique. mb3 Blood collected. 16:00 Inserted saline lock: 24 gauge in left forearm, using aseptic technique. Blood mb3 collected. 16:33 CT completed. Patient tolerated procedure well. Patient moved to MD. Patient moved back il from MD. 18:40 IV discontinued, intact, bleeding controlled, No redness/swelling at site. Pressure mb3 dressing applied. 20:07 No provider procedures requiring assistance completed. Patient admitted, IV remains in mb3 place. 20:09 Patient has correct armband on for positive identification. mb3 Administered Medications: Discontinued: Cipro 400 mg 200 ml IVPB once over 60 mins 14:38 Drug: NS 0.9% 1000 ml Route: IV; Rate: 125 ml/hr; Site: right antecubital; mb3 20:04 Follow up: Response: No adverse reaction; IV Status: Infusion continued upon admission; mb3 IV Intake: 600ml 15:19 Drug: Flagyl 500 mg Volume: 100 ml; Route: IVPB; Rate: 200 ml/hr; Infused Over: 30 mb3 mins; Site: right antecubital; 20:04 Follow up: Response: No adverse reaction; IV Status: Completed infusion; IV Intake: mb3 100ml 15:20 Drug: Cipro 400 mg Volume: 200 ml; Route: IVPB; Infused Over: 60 mins; Site: left mb3 forearm; 15:45 Drug: Benadryl 25 mg Route: IVP; Site: right antecubital; mb3 19:57 Follow up: Response: No adverse reaction mb3 17:26 Drug: Rocephin - (cefTRIAXone) 1 grams Route: IVPB; Infused Over: 30 mins; Site: left mb3 forearm; 19:58 Follow up: Response: No adverse reaction; IV Status: Completed infusion; IV Intake: mb3 100ml Intake: 19:58 IV: 100ml; Total: 100ml. mb3 20:04 IV: 100ml; Total: 200ml. mb3 20:04 IV: 600ml; Total: 800ml. mb3 Outcome: 14:17 Decision to Hospitalize by Provider. yadira 20:05 Admitted to Med/surg accompanied by tech, via wheelchair, room 419, with chart, Report mb3 called to Erin Padron RN 20:05 Condition: stable 20:05 Instructed on the need for admit. 20:10 Patient left the ED. mb3 Signatures: Debra Lemus, RN RN aj1 Juan M Tomas MD MD cha Ringgold, Jennifer jr1 Stacey Villanueva Nathan nj Barnett, Mark, RN RN mb3 Laura Mariscal3
[2018-03-24] MEDS ORDERED: MORPHINE 4 MG/ML SYR IV PRN (14:20)
[2018-03-24] MEDS ORDERED: ONDANSETRON 4 MG/2 ML VIAL IV PRN (14:20)
[2018-03-24] MEDS ORDERED: ACETAMINOPHEN 500 MG TAB PO PRN (14:20)
[2018-03-24] MEDS ORDERED: METRONIDAZOLE 500mg IVPB 500 MG/100 ML BAG IV ONE (14:37)
[2018-03-24] MEDS ORDERED: CIPROFLOXACIN 400mg IV 400 MG/200 ML BAG IV ONE (14:37)
[2018-03-24] MEDS ORDERED: NA CHLORIDE 0.9% 1,000 ML ONE (14:38)
[2018-03-24] MEDS ORDERED: CIPROFLOXACIN 400mg IV 400 MG/200 ML BAG IV SCH ×2 (15:00→21:00)
[2018-03-24] MEDS: NA CHLORIDE 0.9% 1,000 ML IV SCH (15:00)
[2018-03-24] MEDS ORDERED: METRONIDAZOLE 500mg IVPB 500 MG/100 ML BAG IV SCH (15:00)
--- NOTE | 2018-03-24 15:22 | RAD REPORT ---
EXAM DESCRIPTION: RAD - Chest Single View - 03/24/2018 3:08 pm CLINICAL HISTORY: Cough;Abdominal distention Chest pain. COMPARISON: Chest Single View dated 03/17/2018; CHEST SINGLE VIEW dated 12/04/2014; CHEST SINGLE VIEW d ated 12/30/2013; CHEST PA AND LAT 2 VIEW dated 09/27/2013 FINDINGS: Portable technique limits examination quality. Mildly elevated right hemidiaphragm is noted. The lungs are clear of acute infiltrate. The heart is n ormal in size. No displaced fractures.Prominent degenerative changes involving both shoulders. IMPRESSION: No acute intrathoracic process suspected.
[2018-03-24] MEDS ORDERED: DIPHENHYDRAMINE 50 MG/ML VIAL ONE (15:44)
[2018-03-24 15:54] LABS: ALT/SGPT 28 U/L (12-78); AST/SGOT 25 U/L (15-37); Albumin 3.2 g/dL (3.4-5.0); Alkaline Phosphatase 67 U/L (45-117); BUN Blood Urea Nitrogen 23 mg/dL (7-18); Bicarbonate 27 mmol/L (21-32); Bilirubin Direct < 0.1 mg/dL (0-0.2); Bilirubin Total 0.2 mg/dL (0.2-1.0); CKMB Creatine Kinase MB < 1.0 ng/mL (0.3-3.6); Creatine Phosphokinase 54 U/L (26-192); Glucose Level 124 mg/dL (74-106); Lipase 75 U/L (73-393); NT PRO-BNP 134 pg/mL (<450); Potassium 4.4 mmol/L (3.5-5.1); Protein, Total 6.9 g/dL (6.4-8.2); Sodium Level 139 mmol/L (136-145)
[2018-03-24 16:11] LABS: Protime INR 1.01
[2018-03-24 16:22] LABS: Absolute Lymphocytes (CBC) 1.8 K/uL (0.7-4.9); Absolute Monocytes 0.8 K/uL (0.1-1.3); Absolute Neutrophil 5.3 K/uL (1.8-8.0); Basophils % 0.7 % (0-1.3); Eosinophils % 4.1 % (0-4.4); Hematocrit 39.4 % (36.0-45.0); MCH 32.1 pg (27.0-35.0); MCV 95.4 fL (80-100); Monocytes % 9.8 % (3.3-12.3); RBC Red Blood Cell Count 4.13 M/uL (3.86-4.86)
--- NOTE | 2018-03-24 16:44 | RAD REPORT ---
EXAM DESCRIPTION: CT - Abdomen Pelvis W Contrast - 03/24/2018 4:33 pm CLINICAL HISTORY: Abdominal pain, history of diverticulitis, prior cholecystectomy, hysterectomy and appendectomy COMPARISON: None. TECHNIQUE: Biphasic, helical CT imaging of the abdomen and pelvis was performed following 100 ml non -ionic IV contrast. Oral contrast was given. All CT scans are performed using dose optimization technique as appropriate and may include automated exposure control or mA/KV adjustment according to patient size. FINDINGS: No suspicious findings in the lung bases. The liver, spleen, and pancreas show no suspicious findings. Gallbladder is absent. Biliary tree with in normal limits for a post cholecystectomy patient. Symmetric renal function is seen with no hydronephrosis or suspicious renal mass. No urinary bladder abnormality seen. Uterus is absent. Pelvic floor laxity is present. Ovaries are absent, atrophic or p ossibly obscured. Patient has a left hip prosthesis that creates substantial spray artifact across th e pelvic floor. No gastric dilatation or gastric wall thickening. No dilated small bowel loop or acute small bowel fi nding. Moderate stool volume present throughout the nondilated colon. Sigmoid diverticulosis is prese nt. Acute diverticulitis is not confirmed. A mild mucosal level process could be present an occult on CT imaging. No free air, free fluid or inflammatory stranding. No hernia, mass or bulky lymphadenopathy. No adre nal abnormality. No suspicious bony findings. IMPRESSION: Prominent diverticulosis without mass, diverticulitis or other acute colon process seen. Mucosal level inflammatory process can be occult on CT imaging. No pyelonephritis or acute finding. Nonacute findings detailed in the body of the report.
[2018-03-24] MEDS ORDERED: NA CHLORIDE 0.9% 50 ML IV ONE (17:24)
[2018-03-24] MEDS ORDERED: CEFTRIAXONE 1000 MG/VIAL ONE (17:24)
[2018-03-24] MEDS: METRONIDAZOLE 500mg IVPB 500 MG/100 ML BAG IV SCH (18:00)
--- NOTE | 2018-03-24 18:07 | EKG ---
Test Date: 2018-03-24 Test Time: 14:20:03 Gaming Cage Cashier: CHUN MEASUREMENT RESULTS: Intervals: Rate: 85 IA: 188 QRSD: 80 QT: 356 QTc: 423 [place]: P: 41 IA: 188 QRS: -16 T: 56 INTERPRETIVE STATEMENTS: Normal sinus rhythm Low voltage QRS Septal infarct, age undetermined Abnormal ECG Compared to ECG 03/17/2018 19:57:17 No significant changes Electronically Signed On 03-24-18 18:06:19 CDT by Gagan Andres
[2018-03-24] MEDS ORDERED: ALBUTEROL INHALER 60 PUFF/8 GM IH PRN (19:22)
[2018-03-24 20:07] LABS: Urine Blood NEGATIVE (NEG); Urine Glucose NEGATIVE (NEG); Urine Protein NEGATIVE (NEG); Urine pH 6.5 (5.0-7.0)
[2018-03-24] MEDS: FAMOTIDINE 20 MG/2 ML VIAL IV SCH (20:41)
[2018-03-24] MEDS: DULERA 100/5 (MOMETASONE/FORMOTEROL) INHALER IH SCH (20:42)
[2018-03-24] MEDS ORDERED: AMITRIPTYLINE 10 MG TAB PO SCH (21:00)
[2018-03-24] MEDS ORDERED: ENOXAPARIN 40 MG/0.4 ML SQ SCH (21:00)
[2018-03-24 22:55] VITALS: BMI 35.2
[2018-03-24 22:56] VITALS: O2SAT 99
[2018-03-25] MEDS: NA CHLORIDE 0.9% 1,000 ML IV SCH ×2 (00:25→05:39)
[2018-03-25] MEDS: METRONIDAZOLE 500mg IVPB 500 MG/100 ML BAG IV SCH ×3 (00:45→12:17)
[2018-03-25 05:19] LABS: Absolute Lymphocytes (CBC) 2.3 K/uL (0.7-4.9); Absolute Monocytes 0.7 K/uL (0.1-1.3); Absolute Neutrophil 3.3 K/uL (1.8-8.0); Basophils % 0.9 % (0-1.3); Eosinophils % 5.9 % (0-4.4); Hematocrit 37.9 % (36.0-45.0); Lymphocytes % 33.7 % (15.3-44.8); MCH 32.2 pg (27.0-35.0); MPV 7.5 fL (7.6-11.3); Monocytes % 10.4 % (3.3-12.3); RBC Red Blood Cell Count 3.99 M/uL (3.86-4.86)
[2018-03-25 05:31] LABS: ALT/SGPT 23 U/L (12-78); AST/SGOT 18 U/L (15-37); Alkaline Phosphatase 61 U/L (45-117); BUN Blood Urea Nitrogen 18 mg/dL (7-18); Bicarbonate 29 mmol/L (21-32); Bilirubin Direct < 0.1 mg/dL (0-0.2); Bilirubin Total 0.3 mg/dL (0.2-1.0); Glucose Level 105 mg/dL (74-106); Lipase 55 U/L (73-393); Protein, Total 6.2 g/dL (6.4-8.2); Sodium Level 146 mmol/L (136-145)
[2018-03-25] MEDS ORDERED: LEVOTHYROXINE SOD 0.112 MG TAB PO SCH (06:00)
[2018-03-25] MEDS ORDERED: METOPROLOL XL 25 MG TAB PO SCH (06:00)
[2018-03-25] MEDS: DULERA 100/5 (MOMETASONE/FORMOTEROL) INHALER IH SCH (08:57)
[2018-03-25] MEDS ORDERED: ASPIRIN EC 81 MG TAB PO SCH (09:00)
[2018-03-25] MEDS ORDERED: DULOXETINE 30 MG CAP PO SCH (09:00)
[2018-03-25] MEDS ORDERED: MONTELUKAST 10 MG TAB PO SCH (09:00)
[2018-03-25] MEDS: FAMOTIDINE 20 MG/2 ML VIAL IV SCH (09:35)
[2018-03-25] MEDS ORDERED: D5 0.45 NS 1,000 ML IV SCH (10:00)
[2018-03-25] MEDS ORDERED: levoFLOXacin 500 MG TAB PO ONE (10:44)
[2018-03-25 17:17] VITALS: BP 147/65; TEMP 98.2
--- NOTE | 2018-03-27 14:52 | SS ---
Date of Discharge: 03/25/2018 Chief Complaint: Abdominal pain. History Of Present Illness: This is an 87-year-old female patient, who came into emergency room with about 2 days history of left lower quadrant abdominal pain. The patient says she had little bit con stipation for a couple of days associated with this abdominal pain. Denies any fever, chills, nausea , vomiting, bleeding. No aggravating or relieving factor. No radiation of pain. She came into [facility] room. After she was evaluated, she was admitted to the hospital with clinical diagnosis of div erticulitis. CAT scan of the abdomen was negative for any radiological changes of diverticulitis or any other acute findings. This morning when I saw her, she reported that her abdominal pain was stil l present but better today than yesterday. While she was in the emergency room yesterday, she was ge tting IV Cipro and her IV site was in the left dorsum hand area and the patient says that after Levaq uin infusion started she started to have some redness and itching of the left hand around the infusio n site only. She did not have any other reaction or any other body symptoms. No itching rash anywhe re else on the body. No shortness of breath or any other complaints. Benadryl was given in the [facility] room and IV Cipro was discontinued. The patient has not had any problem after that. She does report that she has taken oral Levaquin before and has not had any side effect and we will use that. Allergies: IV CIPRO CAUSING REDNESS AND ITCHING AT THE INFUSION SITE AND SHE IS ALSO ALLERGIC TO DWIGHT ECTIN AND THAT CAUSED HER TO FEEL COLD AND CLAMMY. Review of Systems: GI: As mentioned above. All other systems reviewed and negative. Medications: List reviewed. Past Medical History: Significant for hypertension, asthma, diverticulosis, hypothyroidism, and hype rlipidemia. Osteoarthritis at multiple sites. Insomnia, restless legs syndrome, allergic rhinitis, uterine cancer. Past Surgical History: Appendectomy, cholecystectomy, hysterectomy, tonsillectomy, back surgery, hip replacement, knee replacement, carpal tunnel release. Family History: Not pertinent. Social History: Negative for smoking or alcohol use. Physical Examination: Vital Signs: Height 5 feet 3 inches, weight 198 pounds, temperature 97.1, pulse 63, respiratory rate 18, blood pressure 131/61. General: Awake, alert, oriented, not in distress. HEENT: Head atraumatic, normocephalic. Conjunctivae nonerythematous. Sclerae white. Mouth, no thr ush or edema noted. Ears/Nose, no mass, lesion, discharge noted. Neck: Supple. No JVD, lymph nodes, bruit, thyromegaly noted. Lungs: Bilateral good equal air entry. Clear to auscultation. No rhonchi. No rales. Heart: Normal heart sounds, no murmur or gallop. Abdomen: Mild tenderness in the left lower quadrant. No rebound tenderness. Bowel sounds normoacti ve. No guarding, rigidity. No distention. No hepatosplenomegaly. No bruit. Extremities: No leg edema. No calf tenderness. Skin: No rash, ulcer, cellulitis. Lymphatics: No lymph node enlargement in neck, supraclavicular, infraclavicular region. Neuro: No focal neurological deficit. Chest: Unremarkable. External Genitalia: Deferred. Rectal: Deferred. Laboratory Data: Yesterday, white count 8.4, hemoglobin 13.2, platelets 316. This morning white cou nt 6.8, hemoglobin 12.8, platelets 297. Yesterday, sodium 139, potassium 4.4, chloride 106, bicarb 2 7, BUN 23, creatinine 1.10, glucose 124. Liver function tests unremarkable. Troponin less than 0.02 , lipase 75. This morning lipase 55, sodium 146, potassium 5, chloride 111, bicarb 29, BUN 18, creat inine 1, glucose 105. Liver function tests normal. EKG, normal sinus rhythm, no acute changes. Mikayla st x-ray, no acute cardiopulmonary changes. CAT scan of abdomen and pelvis done in emergency room sh ows evidence of diverticulosis. No acute findings. Urinalysis negative. Hospital Course: After the patient was evaluated in the ER, she was admitted to the hospital with a clinical diagnosis of acute diverticulitis. Overnight her condition has remained stable. This morni ng, when I saw her, no new complaints or problems were reported. We will go ahead and start her on c lear liquid diet and if she tolerates that, we will advance it to soft diet and if she tolerates that this evening, we will plan to discharge her to go home, and I have explained to her that upon discha gilbert she will continue her usual home medications as she took before this admission and she will take 2 different antibiotic Levaquin 500 mg p.o. daily for 1 week and metronidazole 500 mg p.o. 3 times a day for 1 week, and the patient to follow up at my office in 2 weeks. Details and plan of treatment discussed with her. Final Diagnoses: 1.Acute diverticulitis. 2.Hypertension. 3.Hyperlipidemia. 4.Mild intermittent asthma. 5.Osteoarthritis, multiple sites. 6.Allergic rhinitis. 7.Hypothyroidism. KARTIK/MODL Voice ID: [id number] Report ID: [id number]
== END 2018-03-25 19:00 | disposition home or self-care (01) ==
LOC: ER 13:33 → ERHOLD 14:18 → INTOOBSV 14:18 → 4TH 19:41
PROVIDERS: ADMIT Internal Medicine; ATTEND Internal Medicine
DX: K57.92 Diverticulitis of intestine, part unspecified, without perforation or abscess without bleeding (principal); I10 Essential (primary) hypertension; E78.5 Hyperlipidemia, unspecified; J45.20 Mild intermittent asthma, uncomplicated; M19.90 Unspecified osteoarthritis, unspecified site; J30.9 Allergic rhinitis, unspecified; E03.9 Hypothyroidism, unspecified; G25.81 Restless legs syndrome; Z85.42 Personal history of malignant neoplasm of other parts of uterus; Z96.649 Presence of unspecified artificial hip joint; Z96.659 Presence of unspecified artificial knee joint; Z88.0 Allergy status to penicillin
CPT/HCPCS: 36415; 71045; 74177; 80048 ×2; 80076 ×2; 81003; 82550; 82553; 83690 ×2; 83735; 83880; 84484; 85025 ×2; 85610; 85730; 86850; 86900; 86901; 87088; 93005; 99285; G0378 ×2; J0744; J1650; J7030 ×3; Q9967; 87086; J7606

== ENCOUNTER 2019-01-21 17:42 | Emergency (ER) | payer OTHER ==
[2019-01-21] MEDS ORDERED: HYDROCODONE/CHLORPHEN 5 ML/OSYR ONE (18:28)
[2019-01-21] MEDS ORDERED: ALBUTEROL 2.5 MG/3 ML NEB SOL ONE ×2 (18:28→18:33)
--- NOTE | 2019-01-21 19:30 | ER ---
Nurse's Notes [facility] Name: Crystal Padron Age: 88 yrs Sex: Female : 1930 Arrival Date: 01/21/2019 Time: 17:44 Bed 5 Private MD: Arminda Mckeon C Diagnosis: Wheezing;Acute laryngitis Presentation: 01/21 17:47 Presenting complaint: Patient states: Cough, cold, congestion, with coughing spasms. On la1 Tuesday I had CXR done that was normal. I have been on steroids for three days. Transition of care: patient was not received from another setting of care. Onset of symptoms was January 21, 2019. Risk Assessment: Do you want to hurt yourself or someone else? Patient reports no desire to harm self or others. Initial Sepsis Screen: Does the patient meet any 2 criteria? No. Patient's initial sepsis screen is negative. Does the patient have a suspected source of infection? No. Patient's initial sepsis screen is negative. Care prior to arrival: None. 17:47 Method Of Arrival: Wheelchair la1 17:47 Acuity: NICHO 3 la1 Historical: - Allergies: 17:47 tolectin; la1 17:47 Paper Tape; la1 - PMHx: 17:47 Diverticulitis; Hypertension; Hypothyroidism; Seizures; la1 - Immunization history:: Adult Immunizations up to date. - Social history:: Smoking status: Patient/guardian denies using tobacco. - Ebola Screening: : No symptoms or risks identified at this time. Screenin:00 Abuse screen: Denies threats or abuse. Nutritional screening: No deficits noted. aa5 Tuberculosis screening: No symptoms or risk factors identified. Fall Risk None identified. Assessment: 18:00 General: Appears comfortable, Behavior is calm, cooperative. Pain: Denies pain. Neuro: aa5 Level of Consciousness is awake, alert, obeys commands, Oriented to person, place, time, situation. Cardiovascular: Heart tones S1 S2 present Rhythm is regular. Respiratory: Reports cough and chest congestion Airway is patent Respiratory effort is even, unlabored, Respiratory pattern is regular, symmetrical, Breath sounds with wheezes bilaterally. GI: No signs and/or symptoms were reported involving the gastrointestinal system. : No signs and/or symptoms were reported regarding the genitourinary system. EENT: No signs and/or symptoms were reported regarding the EENT system. Derm: Skin is pink, warm \T\ dry. Musculoskeletal: Range of motion: intact in all extremities. 19:15 Reassessment: Patient appears in no apparent distress at this time. Patient and/or jd3 family updated on plan of care and expected duration. Pain level reassessed. Patient is alert, oriented x 3, equal unlabored respirations, skin warm/dry/pink. Patient states feeling better. Respiratory: Airway is patent Respiratory effort is even, unlabored, Respiratory pattern is regular, symmetrical, Breath sounds with wheezes bilaterally. 19:54 Reassessment: Patient appears in no apparent distress at this time. Patient and/or jd3 family updated on plan of care and expected duration. Pain level reassessed. Patient is alert, oriented x 3, equal unlabored respirations, skin warm/dry/pink. Patient states feeling better. Vital Signs: 17:51 BP 145 / 86; Pulse 76; Resp 16; Temp 98.2; Pulse Ox 93% on R/A; Weight 90.72 kg; Height la1 5 ft. 4 in. (162.56 cm); 18:30 BP 115 / 56; Pulse 73; Resp 18 S; Pulse Ox 97% on Nebulizer Mask; aa5 19:16 BP 110 / 68; Pulse 80; Resp 17 S; Pulse Ox 92% on R/A; jd3 17:51 Body Mass Index 34.33 (90.72 kg, 162.56 cm) la1 ED Course: 17:44 Patient arrived in ED. rg4 17:44 Arminda Mckeon MD is Private Physician. rg4 17:47 Arm band placed on left wrist. la1 17:48 Triage completed. la1 17:56 Darling Arevalo [facility]C [facility] snw 17:56 Jesse Coleman MD is Attending Physician. snw 18:00 Patient has correct armband on for positive identification. Placed in gown. Bed in low aa5 position. Call light in reach. Side rails up X2. Adult w/ patient. 18:03 Asuncion Lyons RN is Primary Nurse. aa5 19:00 Report given to TOÑA Kelly and TOÑA Leggett. aa5 19:29 Arminda Mckeon MD is Referral Physician. snw 19:54 No provider procedures requiring assistance completed. Patient did not have IV access jd3 during this emergency room visit. Administered Medications: 18:09 Drug: Tussionex Pennkinetic ER 5 ml Route: PO; hj 18:23 Follow up: Response: No adverse reaction hj 18:10 Drug: Albuterol 2.5 mg Route: Inhalation; hj 18:23 Drug: Albuterol 2.5 mg Route: Inhalation; hj 18:34 Drug: Albuterol 2.5 mg Route: Inhalation; hj 18:40 Follow up: Response: No adverse reaction; Wheezing diminished hj 19:41 Drug: Motrin Suspension 10 ml Route: PO; jd3 19:54 Follow up: Response: Medication administered at discharge. jd3 19:41 Drug: Decadron - Dexamethasone 10 mg {Note: PO in Motrin as ordered.} Route: IVP; Site: [facility] Other; 19:55 Follow up: Response: Medication administered at discharge. jd3 Outcome: 19:30 Discharge ordered by . snkori 19:54 Discharged to home via wheelchair, with family. jd3 19:54 Condition: stable 19:54 Discharge instructions given to patient, family, Instructed on discharge instructions, follow up and referral plans. Demonstrated understanding of instructions, follow-up care. 19:55 Patient left the ED. jd3 Signatures: Darling Arevalo, BARREL COATER-C BARREL COATER-Csnw Asuncion Lyons, RN RN aa5 Rene Castillo RN RN la1 Wes Aleman RN RN hj Garcia, Rubi rg4 Davies, Jonathon, RN RN jd3
--- NOTE | 2019-01-21 19:30 | EDPHYS ---
Physician Documentation [facility] Name: Crystal Padron Age: 88 yrs Sex: Female : 1930 Arrival Date: 01/21/2019 Time: 17:44 Bed 5 Private MD: Arminda Mckeon C ED Physician Jesse Coleman HPI: 01/21 18:09 This 88 yrs old Female presents to ER via Wheelchair with complaints of snw Cough, Congestion. 18:09 The patient or guardian reports airway noise, cough, described as moderate, hoarse snw voice. Onset: The symptoms/episode began/occurred 1 week(s) ago, and became persistent. Severity of symptoms: At their worst the symptoms were moderate. Modifying factors: The symptoms are alleviated by nothing. Associated signs and symptoms: Pertinent positives: paroxysms of coughing. The patient has experienced similar episodes in the past. The patient has been recently seen by a physician: the patient's primary care provider, Dr. Mckeon with similar presenting complaints, was given a prescription for antibiotics, given steroids, albuterol inhaler. Historical: - Allergies: 17:47 tolectin; la1 17:47 Paper Tape; la1 - PMHx: 17:47 Diverticulitis; Hypertension; Hypothyroidism; Seizures; la1 - Immunization history:: Adult Immunizations up to date. - Social history:: Smoking status: Patient/guardian denies using tobacco. - Ebola Screening: : No symptoms or risks identified at this time. ROS: 18:08 Constitutional: Negative for fever, chills, and weight loss, Eyes: Negative for injury, snw pain, redness, and discharge, ENT: Negative for injury, pain, and discharge, Neck: Negative for injury, pain, and swelling, Cardiovascular: Negative for chest pain, palpitations, and edema, Abdomen/GI: Negative for abdominal pain, nausea, vomiting, diarrhea, and constipation, Back: Negative for injury and pain, : Negative for injury, bleeding, discharge, and swelling, MS/Extremity: Negative for injury and deformity, Skin: Negative for injury, rash, and discoloration, Neuro: Negative for headache, weakness, numbness, tingling, and seizure. 18:08 Respiratory: Positive for cough, wheezing. Exam: 18:06 Constitutional: This is a well developed, well nourished patient who is awake, alert, snw and in no acute distress. Head/Face: Normocephalic, atraumatic. Eyes: Pupils equal round and reactive to light, extra-ocular motions intact. Lids and lashes normal. Conjunctiva and sclera are non-icteric and not injected. Cornea within normal limits. Periorbital areas with no swelling, redness, or edema. ENT: Nares patent. No nasal discharge, no septal abnormalities noted. Tympanic membranes are normal and external auditory canals are clear. Oropharynx with no redness, swelling, or masses, exudates, or evidence of obstruction, uvula midline. Mucous membranes moist. Neck: Trachea midline, no thyromegaly or masses palpated, and no cervical lymphadenopathy. Supple, full range of motion without nuchal rigidity, or vertebral point tenderness. No Meningismus. Chest/axilla: Normal chest wall appearance and motion. Nontender with no deformity. No lesions are appreciated. Cardiovascular: Regular rate and rhythm with a normal S1 and S2. No gallops, murmurs, or rubs. Normal PMI, no JVD. No pulse deficits. Abdomen/GI: Soft, non-tender, with normal bowel sounds. No distension or tympany. No guarding or rebound. No evidence of tenderness throughout. Back: No spinal tenderness. No costovertebral tenderness. Full range of motion. Skin: Warm, dry with normal turgor. Normal color with no rashes, no lesions, and no evidence of cellulitis. MS/ Extremity: Pulses equal, no cyanosis. Neurovascular intact. Full, normal range of motion. Neuro: Awake and alert, GCS 15, oriented to person, place, time, and situation. Cranial nerves II-XII grossly intact. Motor strength 5/5 in all extremities. Sensory grossly intact. Cerebellar exam normal. Normal gait. Psych: Awake, alert, with orientation to person, place and time. Behavior, mood, and affect are within normal limits. 18:06 Respiratory: the patient does not display signs of respiratory distress, Respirations: shallow respirations, Breath sounds: wheezing: inspiratory expiratory that is moderate, is heard diffusely, paroxysms of coughing . Vital Signs: 17:51 BP 145 / 86; Pulse 76; Resp 16; Temp 98.2; Pulse Ox 93% on R/A; Weight 90.72 kg; Height la1 5 ft. 4 in. (162.56 cm); 18:30 BP 115 / 56; Pulse 73; Resp 18 S; Pulse Ox 97% on Nebulizer Mask; aa5 19:16 BP 110 / 68; Pulse 80; Resp 17 S; Pulse Ox 92% on R/A; jd3 17:51 Body Mass Index 34.33 (90.72 kg, 162.56 cm) la1 MDM: 17:59 Patient medically screened. snw 19:31 Data reviewed: vital signs, nurses notes. Data interpreted: Pulse oximetry: on room air snw is 92 %. Interpretation: acceptable. Counseling: I had a detailed discussion with the patient and/or guardian regarding: the historical points, exam findings, and any diagnostic results supporting the discharge/admit diagnosis, the need for outpatient follow up, to return to the emergency department if symptoms worsen or persist or if there are any questions or concerns that arise at home. Special discussion: Based on the history and exam findings, there is no indication for further emergent testing or inpatient evaluation. I discussed with the patient/guardian the need to see the primary care provider for further evaluation of the symptoms. Administered Medications: 18:09 Drug: Tussionex Pennkinetic ER 5 ml Route: PO; hj 18:23 Follow up: Response: No adverse reaction hj 18:10 Drug: Albuterol 2.5 mg Route: Inhalation; hj 18:23 Drug: Albuterol 2.5 mg Route: Inhalation; hj 18:34 Drug: Albuterol 2.5 mg Route: Inhalation; hj 18:40 Follow up: Response: No adverse reaction; Wheezing diminished hj 19:41 Drug: Motrin Suspension 10 ml Route: PO; j 19:54 Follow up: Response: Medication administered at discharge. j 19:41 Drug: Decadron - Dexamethasone 10 mg {Note: PO in Motrin as ordered.} Route: IVP; Site: [facility] Other; 19:55 Follow up: Response: Medication administered at discharge. [facility] Disposition: 01/21/19 19:30 Discharged to Home. Impression: Wheezing, Acute laryngitis. - Condition is Stable. - Discharge Instructions: How to Use an Inhaler, Laryngitis, Upper Respiratory Infection, Adult, Cough, Adult, [id number]. - Medication Reconciliation Form, Thank You Letter, Antibiotic Education, Prescription Opioid Use form. - Follow up: Arminda Mckeon MD; When: 2 - 3 days; Reason: Recheck today's complaints, Continuance of care, Re-evaluation by your physician. Follow up: Emergency Department; When: As needed; Reason: Worsening of condition. - Notes: Please continue current medications. Addendum: 01/23/2019 08:10 Co-signature as Attending Physician, Jesse Coleman MD I agree with the assessment and k dr plan of care. Signatures: Jesse Coleman MD MD [facility] Darling Arevalo, CHELY-C SIGN FABRICATOR-Csnw Rene Castillo RN RN la1 Wes Aleman, RN RN hj Oleksandr Jang RN RN jd3 Corrections: (The following items were deleted from the chart) 01/21 19:55 19:30 01/21/2019 19:30 Discharged to Home. Impression: Wheezing; Acute laryngitis. jd3 Condition is Stable. Forms are Medication Reconciliation Form, Thank You Letter, Antibiotic Education, Prescription Opioid Use. Follow up: Arminda Mckeon; When: 2 - 3 days; Reason: Recheck today's complaints, Continuance of care, Re-evaluation by your physician. Follow up: Emergency Department; When: As needed; Reason: Worsening of condition. snw
[2019-01-21] MEDS ORDERED: DEXAMETHASONE 10 MG/ML VIAL ONE (19:44)
[2019-01-21] MEDS ORDERED: IBUPROFEN 100 MG/5 ML UCUP ONE (19:45)
[2019-01-21 20:46] VITALS: TEMP 98.2
[2019-01-21 20:48] VITALS: BP 110/68; O2SAT 92
== END 2019-01-21 19:55 | disposition home or self-care (01) ==
LOC: ER 17:42
DX: R06.2 Wheezing (principal); J04.0 Acute laryngitis; R05 Cough; I10 Essential (primary) hypertension; E03.9 Hypothyroidism, unspecified
CPT/HCPCS: 96374; 99284; J1100

== ENCOUNTER 2021-02-21 15:46 | Emergency (ER) | payer OTHER ==
[2021-02-21] MEDS ORDERED: HYDROCODONE/APAP 5/325 MG TAB ONE (17:15)
[2021-02-21] MEDS ORDERED: IBUPROFEN 400 MG TAB ONE (17:15)
--- NOTE | 2021-02-21 18:16 | RAD REPORT ---
EXAM DESCRIPTION: RAD - Hip Left 2 View - 02/21/2021 5:07 pm CLINICAL HISTORY: PAIN COMPARISON: Hip Left 2 View dated 12/06/2014 FINDINGS: AP and frogleg views of the left hip were obtained. There is no fracture or dislocation. No acute or destructive bony process seen. Hip prosthesis is in place. No new or progressive subsidence of the femoral component when compared to 2015. No radiograp hic evidence for loosening. No acute finding of the left hemipelvis. SI joint degenerative changes ar e present. No soft tissue abnormality. IMPRESSION: Negative left hip examination for acute or significant findings. No significant change from 2015 study.
--- NOTE | 2021-02-21 18:17 | RAD REPORT ---
EXAM DESCRIPTION: US - Extremity Venous Uni Ltd - 02/21/2021 5:43 pm CLINICAL HISTORY: PAIN COMPARISON: None. TECHNIQUE: Real-time sonographic evaluation of the left lower extremity deep venous system was perfo rmed. FINDINGS: Normal compressibility, flow augmentation, phasic flow and spontaneous flow are identified in the left lower extremity common femoral, superficial femoral, popliteal and posterior tibial vein s. No intraluminal filling defects seen. IMPRESSION: No DVT in the left lower extremity.
--- NOTE | 2021-02-21 18:21 | RAD REPORT ---
EXAM DESCRIPTION: RAD - Pelvis - 02/21/2021 5:51 pm CLINICAL HISTORY: PAIN COMPARISON: Abdomen Pelvis W Contrast dated 03/24/2018 TECHNIQUE: AP imaging of the pelvis was obtained. FINDINGS: Lower lumbar postsurgical changes are present only partially imaged. Sclerotic changes are present at the right SI joint matching the 2018 study. Soft tissue or tendon calcifications adjacent to each ischium unchanged from 2018. There are moderate right hip joint degenerative changes seen wi thout acute finding. Left total prosthesis in place at the hip joint. No dislocation of the femoral component. No radiogra phic evidence for loosening or evidence for progressive subsidence of the femoral component. IMPRESSION: No acute pelvis or hip joint finding.
--- NOTE | 2021-02-21 18:24 | RAD REPORT ---
EXAM DESCRIPTION: RAD - Ankle Left 3 View - 02/21/2021 5:52 pm CLINICAL HISTORY: PAIN COMPARISON: No comparisons FINDINGS: No fracture, dislocation or periosteal reaction. Bones are osteopenic. No joint space narr owing. Patient has extensive calcification of the plantar tendon and fascia. Less prominent calcifica tions of the Achilles tendon noted. Numerous additional periarticular calcifications seen at the ankl e joint. Mild marginal spurring changes noted at the tibiotalar joint space. Soft tissue swelling is present. No air or foreign body the soft tissues. IMPRESSION: No fracture or acute ankle joint finding. Extensive tendon and periarticular soft tissue calcifications.
--- NOTE | 2021-02-21 18:41 | ER ---
Nurse's Notes [facility] Name: Crystal Padron Age: 89 yrs Sex: Female : 1930 Arrival Date: 02/21/2021 Time: 16:04 Bed 8 Private MD: Diagnosis: Pain in left hip Presentation: 02/21 16:05 Chief complaint: Patient states: Right hip pain starting this morning. Coronavirus kg screen: Client denies travel out of the [place] in the last 14 days. At this time, unable to obtain information related to travel outside the [place] At this time, the client does not indicate any symptoms associated with coronavirus-19. Ebola Screen: Patient negative for fever greater than or equal to 101.5 degrees Fahrenheit, and additional compatible Ebola Virus Disease symptoms Patient denies exposure to infectious person. Patient denies travel to an Ebola-affected area in the 21 days before illness onset. Initial Sepsis Screen: Does the patient meet any 2 criteria? No. Patient's initial sepsis screen is negative. Does the patient have a suspected source of infection? No. Patient's initial sepsis screen is negative. Risk Assessment: Do you want to hurt yourself or someone else? Patient reports no desire to harm self or others. Onset of symptoms was February 21, 2021 at 09:00. 16:05 Method Of Arrival: EMS: [facility] kg 16:05 Acuity: NICHO 4 kg Historical: - Allergies: 16:11 paper tape; kg 16:11 tolectin; kg - PMHx: 16:11 Diverticulitis; Hypertension; Hypothyroidism; Seizures; kg 16:21 Cancer; Uterine; kg - PSHx: 16:11 Left hip replacement; kg 16:21 Cholecystectomy; Knee surgery; Tonsillectomy; Appendectomy; Adenoids; Back surgery; kg Hysterectomy; - Immunization history:: Adult Immunizations up to date. - Social history:: Smoking status: Patient denies any tobacco usage or history of. Screenin:24 Abuse screen: Denies threats or abuse. Denies injuries from another. kg 19:14 Nutritional screening: No deficits noted. Tuberculosis screening: No symptoms or risk kg factors identified. Fall Risk None identified. No fall in past 12 months (0 pts). Secondary diagnosis (15 points) impaired mobility, No IV (0 pts). Ambulatory Aid- None/Bed Rest/Nurse Assist (0 pts). Gait- Weak (10 pts.). Mental Status- Oriented to own ability (0 pts). Total Tobar Fall Scale indicates No Risk (0-24 pts). Assessment: 16:21 General: Appears in no apparent distress. comfortable, Behavior is calm, cooperative, kg appropriate for age, quiet. Pain: Complains of pain in Left hip Pain does not radiate. Pain currently is 3 out of 10 on a pain scale. at worst was 10 out of 10 on a pain scale. level that patient reports is acceptable is 2 out of 10 on a pain scale. Quality of pain is described as aching, sharp, shooting, stabbing, squeezing, Pain began suddenly. Neuro: No deficits noted. Cardiovascular: No deficits noted. Respiratory: No deficits noted. GI: No deficits noted. : No deficits noted. EENT: No deficits noted. Derm: No deficits noted. Musculoskeletal: Reports pain in Left hip since 0900. Pain is 3 out of 10 on a pain scale. 18:24 Reassessment: Patient states feeling better. kg Vital Signs: 16:05 BP 116 / 44; Pulse 71; Resp 20; Pulse Ox 93% ; Weight 84.82 kg (R); Height 5 ft. 3 in. kg (160.02 cm); Pain 7/10; 16:24 BP 100 / 48; Pulse 79; Resp 20; Pulse Ox 92% on R/A; kg 17:00 BP 98 / 64; Pulse 72; Resp 20; Pulse Ox 97% on R/A; kg 18:00 BP 102 / 62; Pulse 69; Resp 20; Pulse Ox 93% on R/A; kg 19:00 BP 105 / 58; Pulse 67; Resp 20; Pulse Ox 94% on R/A; kg 16:05 Body Mass Index 33.13 (84.82 kg, 160.02 cm) kg ED Course: 16:04 Patient arrived in ED. kg 16:05 Aurelia Calderon, TOÑA is Primary Nurse. kg 16:06 Juan M Miller PA is PHCP. cp 16:06 Juan M Tomas MD is Attending Physician. cp 16:10 Triage completed. kg 17:00 Arm band placed on right wrist. kg 17:07 XRAY Hip LEFT 2 view In Process Unspecified. EDMS 17:42 US Extremity Venous Unilateral Ltd In Process Unspecified. EDMS 17:51 XRAY Ankle LEFT 3 view In Process Unspecified. EDMS 17:51 XRAY Pelvis In Process Unspecified. EDMS 18:40 Arminda Mckeon MD is Referral Physician. cp 19:14 Patient has correct armband on for positive identification. Bed in low position. Call kg light in reach. Side rails up X2. Adult w/ patient. 19:14 No provider procedures requiring assistance completed. Patient did not have IV access kg during this emergency room visit. Administered Medications: 16:56 Drug: Ibuprofen 800 mg Route: PO; kg 19:16 Follow up: Response: No adverse reaction; Marked relief of symptoms kg 16:56 Drug: HYDROcodone-acetaminophen 5 mg-325 mg 1 tabs Route: PO; kg 19:16 Follow up: Response: No adverse reaction; Marked relief of symptoms kg Outcome: 18:40 Discharge ordered by MD. cp 19:15 Discharged to home via wheelchair. kg 19:15 Condition: improved 19:15 Discharge instructions given to patient, family, Instructed on discharge instructions, follow up and referral plans. Demonstrated understanding of instructions, follow-up care, medications, Prescriptions given X 2. 19:16 Patient left the ED. kg Signatures: Dispatcher [employer] EDMS Juan M Miller PA PA cp Aurelia Calderon, RN RN kg
--- NOTE | 2021-02-21 18:41 | EDPHYS ---
Physician Documentation [facility] Name: Crystal Padron Age: 89 yrs Sex: Female : 1930 Arrival Date: 02/21/2021 Time: 16:04 Bed 8 Private MD: Juan M Salgado HPI: 02/21 16:30 This 89 yrs old Female presents to ER via EMS with complaints of Left Hip cp Pain. 16:30 The patient presents with pain, that is acute. The complaints affect the left hip. cp Context: resulted from an unknown cause, the patient can partially bear weight, the patient is able to ambulate, with moderate difficulty, Problem is a result from a previous injury: Yes. hip replacement. Onset: The symptoms/episode began/occurred this morning. Modifying factors: the symptoms are aggravated by weight bearing. Historical: - Allergies: 16:11 paper tape; kg 16:11 tolectin; kg - PMHx: 16:11 Diverticulitis; Hypertension; Hypothyroidism; Seizures; kg 16:21 Cancer; Uterine; kg - PSHx: 16:11 Left hip replacement; kg 16:21 Cholecystectomy; Knee surgery; Tonsillectomy; Appendectomy; Adenoids; Back surgery; kg Hysterectomy; - Immunization history:: Adult Immunizations up to date. - Social history:: Smoking status: Patient denies any tobacco usage or history of. ROS: 16:35 MS/extremity: Positive for pain, of the left hip, Negative for injury or acute cp deformity, decreased range of motion, paresthesias. 16:35 Eyes: Negative for injury, pain, redness, and discharge. cp 16:35 Constitutional: Negative for body aches, chills, fever. 16:35 Cardiovascular: Negative for chest pain. 16:35 Respiratory: Negative for cough. 16:35 Abdomen/GI: Negative for abdominal pain, nausea, vomiting, and diarrhea. 16:35 Back: Negative for pain at rest, pain with movement, radiated pain. 16:35 Skin: Negative for rash. 16:35 Neuro: Negative for altered mental status, headache, numbness, weakness. 16:35 All other systems are negative. Exam: 16:40 Constitutional: The patient appears in no acute distress, alert, awake, non-toxic, well cp developed, well nourished. 16:40 Head/Face: Normocephalic, atraumatic. cp 16:40 Eyes: Periorbital structures: appear normal, Conjunctiva: normal, no exudate, no injection, Sclera: no appreciated abnormality, Lids and lashes: appear normal, bilaterally. 16:40 Neck: ROM/movement: is normal, is supple, without pain, no range of motions limitations. 16:40 Chest/axilla: Inspection: normal, Palpation: is normal, no crepitus, no tenderness. 16:40 Cardiovascular: Rate: normal, Rhythm: regular, Pulses: Pulses are 2+ in left dorsalis pedis artery. 16:40 Respiratory: the patient does not display signs of respiratory distress, Respirations: normal, no use of accessory muscles, no retractions, labored breathing, is not present, Breath sounds: are clear throughout, no decreased breath sounds. 16:40 Abdomen/GI: Inspection: abdomen appears normal, Palpation: abdomen is soft and non-tender, in all quadrants. 16:40 Back: pain, is absent, ROM is normal, vertebral tenderness, is not appreciated. 16:40 Musculoskeletal/extremity: Extremities: grossly normal except: noted in the left hip: pain, tenderness, There is no evidence of decreased ROM, deformity, ROM: limited passive range of motion due to pain, in the left hip. 16:40 Skin: cellulitis, is not appreciated, no rash present. 16:40 Neuro: Orientation: to person, place \T\ time. Mentation: is normal. Vital Signs: 16:05 BP 116 / 44; Pulse 71; Resp 20; Pulse Ox 93% ; Weight 84.82 kg (R); Height 5 ft. 3 in. kg (160.02 cm); Pain 7/10; 16:24 BP 100 / 48; Pulse 79; Resp 20; Pulse Ox 92% on R/A; kg 17:00 BP 98 / 64; Pulse 72; Resp 20; Pulse Ox 97% on R/A; kg 18:00 BP 102 / 62; Pulse 69; Resp 20; Pulse Ox 93% on R/A; kg 19:00 BP 105 / 58; Pulse 67; Resp 20; Pulse Ox 94% on R/A; kg 16:05 Body Mass Index 33.13 (84.82 kg, 160.02 cm) kg MDM: 16:09 Patient medically screened. cp 18:00 Differential diagnosis: dislocation, closed fracture, DVT. cp 18:40 Data reviewed: vital signs, nurses notes, radiologic studies, plain films. cp 18:40 Counseling: I had a detailed discussion with the patient and/or guardian regarding: the cp historical points, exam findings, and any diagnostic results supporting the discharge/admit diagnosis, radiology results, the need for outpatient follow up, an poultryman, to return to the emergency department if symptoms worsen or persist or if there are any questions or concerns that arise at home. 18:40 Response to treatment: the patient's symptoms have markedly improved after treatment, cp VSS. Pain improved. Will discharge to home for continued monitoring. Review of [place] prescription monitor website: narcotic score 090, sedative score 040, overdose risk score 280. 02/21 16:08 Order name: XRAY Hip LEFT 2 view; Complete Time: 18:22 cp 02/21 16:08 Order name: US Extremity Venous Unilateral Ltd; Complete Time: 18:22 cp 02/21 17:11 Order name: XRAY Ankle LEFT 3 view; Complete Time: 18:26 cp 02/21 17:16 Order name: XRAY Pelvis; Complete Time: 18:22 cp Administered Medications: 16:56 Drug: Ibuprofen 800 mg Route: PO; kg 19:16 Follow up: Response: No adverse reaction; Marked relief of symptoms kg 16:56 Drug: HYDROcodone-acetaminophen 5 mg-325 mg 1 tabs Route: PO; kg 19:16 Follow up: Response: No adverse reaction; Marked relief of symptoms kg Disposition: 02/21/21 18:40 Discharged to Home. Impression: Pain in left hip. - Condition is Stable. - Discharge Instructions: Joint Pain, Hip Pain. - Prescriptions for Ultracet 37.5- 325 mg Oral Tablet - take 1 tablet by ORAL route every 6 hours - for up to 5 days; do not exceed 8 tablets per day.; 20 tablet. Mobic 7.5 mg Oral Tablet - take 1 tablet by ORAL route once daily take with food; 20 tablet. - Medication Reconciliation Form, Thank You Letter, Antibiotic Education, Prescription Opioid Use form. - Follow up: Arminda Mckeon MD; When: 2 - 3 days; Reason: Recheck today's complaints. - Problem is new. - Symptoms have improved. Signatures: [facility] Juan M Miller PA PA cp Kvng, Aurelia, RN RN kg Corrections: (The following items were deleted from the chart) 19:16 18:40 02/21/2021 18:40 Discharged to Home. Impression: Pain in left hip. Condition is kg Stable. Prescriptions for Ultracet 37.5-325 mg Oral Tablet - take 1 tablet by ORAL route every 6 hours - for up to 5 days; do not exceed 8 tablets per day.; 20 tablet, Mobic 7.5 mg Oral Tablet - take 1 tablet by ORAL route once daily take with food; 20 tablet. and Forms are Medication Reconciliation Form, Thank You Letter, Antibiotic Education, Prescription Opioid Use. Follow up: A Mckeon; When: 2 - 3 days; Reason: Recheck today's complaints. Problem is new. Symptoms have improved. cp
[2021-02-21 19:35] VITALS: BP 105/58; O2SAT 94
== END 2021-02-21 19:16 | disposition home or self-care (01) ==
LOC: ER 15:46
DX: M25.552 Pain in left hip (principal); I10 Essential (primary) hypertension; Z88.8 Allergy status to other drugs, medicaments and biological substances; Z91.048 Other nonmedicinal substance allergy status; Z96.642 Presence of left artificial hip joint
CPT/HCPCS: 72170; 93971; 99284